=== PATIENT | male | born 1965 | race Caucasian/White ===

== ENCOUNTER 2019-06-13 09:20 | Inpatient (IN) | payer OTHER ==
[~2019-06-13] VITALS: Ht 182.9 cm; Wt 113.4 kg
[2019-06-13] MEDS ORDERED: METOPROLOL TARTRATE 5 MG/5 ML VIAL. IVP ONE (09:30)
--- NOTE | 2019-06-13 09:39 | PHYS DOC ---
Past Medical History Past Medical History: CAD, Diabetes-Type II, Hypertension Additional Past Surgical Histo: PTCA Smoking: Quit Greater Than 1 Year (smoked socially during service) Adult General Chief Complaint Chief Complaint: CHEST PAIN HPI HPI Patient is a 54-year-old male, with a past history of coronary artery disease and other medical problems, who presents to the emergency department for evaluation. He states that at about 8 AM this morning, when he went to work, he developed the sudden onset of sharp midsternal chest pain without radiation. Patient was diaphoretic, and found to be hypertensive. EMS was called, and p erformed an EKG, which did show some ischemic changes, but was reviewed, for the patient's arrival, but myself and cardiology on-call, and not felt quite be diagnostic of an ST elevation AL. The patient was given 100 �g of fentanyl as well as 324 mg of aspirin by EMS, vomited once after receiving the pain medication, and the pain is improved, but not completely resolved, he rates his pain as a 2. He states the pain did not quite feel the same as his prior AL, which she reports was a mild heart attack. He states this is more intense. There are no alleviating or exacerbating factors to his symptoms otherwise. Review of Systems Review of Systems Constitutional: Denies fever or chills [] Eyes: Denies change in visual acuity, redness, or eye pain [] HENT: Denies nasal congestion or sore throat [] Respiratory: Denies cough. Reports shortness of breath [] Cardiovascular: No additional information not addressed in HPI [] GI: Denies abdominal pain, nausea, vomiting, bloody stools or diarrhea [] : Denies dysuria or hematuria [] Musculoskeletal: Denies back pain or joint pain [] Integument: Denies rash or skin lesions [] Neurologic: Denies headache, focal weakness or sensory changes [] Endocrine: Denies polyuria or polydipsia [] All other systems were reviewed and found to be within normal limits, except as documented in this note. Current Medications Current Medications Current Medications Medications (Trade) Dose Ordered Sig/Bret Start Time Stop Time Status Last Admin Dose Admin Heparin Sodium (Porcine) (Heparin Sodium) 4,000 unit 1X ONCE 06/13/19 09:45 06/13/19 09:55 DC 06/13/19 09:49 4,000 UNIT Heparin Sodium/ Dextrose 500 ml @ As Directed STK-MED ONCE 06/13/19 09:45 06/13/19 09:45 DC Insulin Human Regular (HumuLIN R VIAL) 10 unit 1X ONCE 06/13/19 10:15 06/13/19 10:18 DC Lorazepam (Ativan Inj) 2 mg STK-MED ONCE 06/13/19 09:45 06/13/19 09:45 DC Magnesium Sulfate/ Dextrose 100 ml @ 100 mls/hr 1X ONCE 06/13/19 10:15 06/13/19 11:14 Metoprolol Tartrate (Lopressor Vial) 5 mg 1X ONCE 06/13/19 09:30 06/13/19 09:32 DC 06/13/19 09:46 5 MG Nitroglycerin/ Dextrose 250 ml @ As Directed STK-MED ONCE 06/13/19 09:51 06/13/19 09:51 DC Sodium Chloride 1,000 ml @ 1,000 mls/hr 1X ONCE 06/13/19 10:15 06/13/19 11:14 Allergies Allergies Allergies Coded Allergies Type Severity Reaction Last Updated Verified No Known Drug Allergies 06/13/19 No Physical Exam Physical Exam PHYSICAL EXAM: CONSTITUTIONAL: Well developed, well nourished HEAD: normocephalic, atraumatic EENT: PERRL, EOMI. Conjunctivae normal color, sclerae non-icteric; moist mucous membranes. NECK: Supple, non-tender; no meningismus. LUNGS: Lungs CTA, breathing even and unlabored. Normal air movement. HEART: Regular rate and rhythm, no murmur CHEST: No deformity; non-tender ABDOMEN: The abdomen is soft, and non-tender, no masses or bruits. EXTREM: Normal ROM; no deformity, no calf tenderness. Normal pulses palpable in all extremities. There is no pedal edema. SKIN: No rash; no diaphoresis NEURO: Alert; normal speech and cognition; CN's grossly intact; strength grossly intact without focal deficit. BACK: No CVA TTP. Current Patient Data Vital Signs Vital Signs Date Time Temp Pulse Resp B/P (MAP) Pulse Ox O2 Delivery O2 Flow Rate FiO2 06/13/19 09:46 100 211/125 06/13/19 09:20 98.6 20 99 Room Air 98.6 Lab Values Laboratory Tests Test 06/13/19 09:24 06/13/19 09:45 White Blood Count 5.2 x10^3/uL (4.0-11.0) Red Blood Count 5.18 x10^6/uL (4.30-5.70) Hemoglobin 16.0 g/dL (13.0-17.5) Hematocrit 44.9 % (39.0-53.0) Mean Corpuscular Volume 87 fL (79-100) Mean Corpuscular Hemoglobin 31 pg (25-35) Mean Corpuscular Hemoglobin Concent 36 g/dL (31-37) Red Cell Distribution Width 13.7 % (11.5-14.5) Platelet Count 179 x10^3/uL (140-400) Neutrophils (%) (Auto) 81 % (31-73) H Lymphocytes (%) (Auto) 12 % (24-48) L Monocytes (%) (Auto) 6 % (0-9) Eosinophils (%) (Auto) 1 % (0-3) Basophils (%) (Auto) 0 % (0-3) Neutrophils # (Auto) 4.2 x10^3/uL (1.8-7.7) Lymphocytes # (Auto) 0.6 x10^3/uL (1.0-4.8) L Monocytes # (Auto) 0.3 x10^3/uL (0.0-1.1) Eosinophils # (Auto) 0.1 x10^3/uL (0.0-0.7) Basophils # (Auto) 0.0 x10^3/uL (0.0-0.2) Prothrombin Time 12.3 SEC (11.7-14.0) Prothrombin Time INR 0.9 (0.8-1.1) Sodium Level 138 mmol/L (136-145) Potassium Level 3.9 mmol/L (3.5-5.1) Chloride Level 99 mmol/L (98-107) Carbon Dioxide Level 26 mmol/L (21-32) Anion Gap 13 (6-14) Blood Urea Nitrogen 16 mg/dL (8-26) Creatinine 1.3 mg/dL (0.7-1.3) Estimated GFR (Cockcroft-Gault) 57.5 BUN/Creatinine Ratio 12 (6-20) Glucose Level 530 mg/dL (70-99) *H Calcium Level 9.1 mg/dL (8.5-10.1) Magnesium Level 1.6 mg/dL (1.8-2.4) L Total Bilirubin 1.2 mg/dL (0.2-1.0) H Aspartate Amino Transferase (AST) 21 U/L (15-37) Alanine Aminotransferase (ALT) 46 U/L (16-63) Alkaline Phosphatase 117 U/L (46-116) H Troponin I Quantitative < 0.017 ng/mL (0.000-0.055) BS-Hkh-U-Type Natriuretic Peptide 36 pg/mL (0-124) Total Protein 7.4 g/dL (6.4-8.2) Albumin 3.9 g/dL (3.4-5.0) Albumin/Globulin Ratio 1.1 (1.0-1.7) POC Troponin I 0.00 ng/ml (<0.08) Laboratory Tests 06/13/19 09:24 Laboratory Tests 06/13/19 09:24 EKG EKG Normal sinus rhythm at a rate of 102 beats for minute, normal axis, normal intervals, there are subtle ST elevation in leads II, III, and aVF, as well as subtle anterior ST elevation with a concave upwards pattern, suggestive of ischemia, but not clearly diagnostic, of an acute ST elevation AL. EKG was reviewed both by myself, and by cardiology on-call, Dr. Munoz. [] Radiology/Procedures Radiology/Procedures []PROCEDURE: CHEST AP ONLY CHEST AP ONLY History: Chest pain Comparison: None. Findings: Single view of the chest is submitted. There is no infiltrate, pneumothorax, or effusion. Pericardial cardiac silhouette is borderline enlarged. Impression: 1. Pericardial cardiac silhouette is borderline enlarged. Course & Med Decision Making Course & Med Decision Making Pertinent Labs and Imaging studies reviewed. 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 Munoz, is in ED to see patient. 10:25 AM: Patient's condition remained stable, he is feeling significantly better at this time. His pain is controlled. The patient's EKG was not deemed to be definitively ischemic, and the patient reports that it had a negative stress test recently, and thus will be managed expectantly, per cardiology recommendations. Hospitalist will admit the patient for further management and treatment. []CRITICAL CARE TIME: [60] Minutes, excluding any procedures and care of other patients. Dragon Disclaimer Dragon Disclaimer This electronic medical record was generated, in whole or in part, using a voice recognition dictation system. Departure Departure Impression: Primary Impression: Chest pain Additional Impressions: CAD (coronary artery disease) Hyperglycemia Disposition: ADMITTED INPATIENT Condition: STABLE Referrals: UNKNOWN PCP NAME (PCP) Problem Qualifiers ESTIVEN BERUMEN MD Jun 13, 2019 09:39
--- NOTE | 2019-06-13 09:41 | RAD ---
CHEST AP ONLY History: Chest pain Comparison: None. Findings: Single view of the chest is submitted. There is no infiltrate, pneumothorax, or effusion. Pericardial cardiac silhouette is borderline enlarged. Impression: 1. Pericardial cardiac silhouette is borderline enlarged. Electronically signed by: Willis Zee MD (06/13/2019 9:39 AM) [id number]
[2019-06-13] MEDS ORDERED: HEPARIN 25,000UTS/500ML PREMIX 0 ML IV ONE (09:45)
[2019-06-13] MEDS ORDERED: HEPARIN for IV BOLUS 10,000 UNIT/10 ML VIAL. IV ONE (09:45)
[2019-06-13 09:46] LABS: BASO % 0 % (0-3); EOS # 0.1 x10^3/uL (0.0-0.7); EOS % 1 % (0-3); HEMATOCRIT 44.9 % (39.0-53.0); LYMPH # 0.6 x10^3/uL (1.0-4.8); LYMPH % 12 % (24-48); MEAN CORPUSCULAR HEMOGLOBIN 31 pg (25-35); MEAN CORPUSCULAR HGB CONC 36 g/dL (31-37); MEAN CORPUSCULAR VOLUME 87 fL (79-100); MONO # 0.3 x10^3/uL (0.0-1.1); MONO % 6 % (0-9); NEUT # 4.2 x10^3/uL (1.8-7.7); NEUT % 81 % (31-73); PLATELET COUNT 179 x10^3/uL (140-400); RED BLOOD COUNT 5.18 x10^6/uL (4.30-5.70); RED CELL DISTRIBUTION WIDTH 13.7 % (11.5-14.5); WHITE BLOOD COUNT 5.2 x10^3/uL (4.0-11.0)
[2019-06-13] MEDS ORDERED: NITROGLYCERIN PREMIX 250 ML IV ONE (09:51)
[2019-06-13 10:02] LABS: ALBUMIN 3.9 g/dL (3.4-5.0); ALBUMIN/GLOBULIN RATIO 1.1 (1.0-1.7); CALCIUM 9.1 mg/dL (8.5-10.1); CREATININE 1.3 mg/dL (0.7-1.3); GFR 57.5; MAGNESIUM 1.6 mg/dL (1.8-2.4); POTASSIUM 3.9 mmol/L (3.5-5.1); TOTAL BILIRUBIN 1.2 mg/dL (0.2-1.0); TOTAL PROTEIN 7.4 g/dL (6.4-8.2)
[2019-06-13 10:07] LABS: PROTHROMBIN TIME PATIENT 12.3 SEC (11.7-14.0)
[2019-06-13] MEDS ORDERED: INSULIN REGULAR 100 UNIT/ML 3ML VIAL. IV ONE (10:15)
[2019-06-13] MEDS ORDERED: IV NORMAL SALINE 1000ML BAG 1,000 ML IV ONE (10:15)
[2019-06-13] MEDS ORDERED: MAGNESIUM SULFATE 1GM 100 ML IV ONE (10:15)
--- NOTE | 2019-06-13 10:25 | EKG ---
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
[2019-06-13 12:20] VITALS: BP 186/103
--- NOTE | 2019-06-13 12:21 | EKG ---
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
[2019-06-13] MEDS ORDERED: DEXTROSE 50% 25 GM / 50ML DISP.SYRIN. IV PRN (13:45)
[2019-06-13] MEDS ORDERED: INSULIN LISPRO 300 UNITS/3 ML VIAL. SQ ONE (13:45)
[2019-06-13] MEDS ORDERED: IV DEXTROSE 5% 250 ML BAG. IV PRN (13:45)
[2019-06-13] MEDS: INSULIN LISPRO 300 UNITS/3 ML VIAL. SQ SCH ×3 (14:29→18:34)
[2019-06-13] MEDS ORDERED: amLODIPine BESYLATE 5 MG TABLET PO ONE (14:30)
[2019-06-13] MEDS ORDERED: HEPARIN 25,000UTS/500ML PREMIX 500 ML IV PRN (14:30)
[2019-06-13] MEDS ORDERED: LABETALOL 20 MG/4 ML DISP.SYRIN. IVP PRN (14:30)
[2019-06-13 15:00] VITALS: BP 190/113
[2019-06-13 15:48] LABS: BILIRUBIN,URINE NEGATIVE (NEG); CLARITY,URINE CLEAR; COLOR,URINE YELLOW; NITRITE,URINE NEGATIVE (NEG); PROTEIN,URINE NEGATIVE (NEG-TRACE); UROBILINOGEN,URINE 0.2 mg/dL (0.2 mg/dL)
[2019-06-13 15:53] LABS: BACTERIA,URINE 0 /HPF (0-FEW); RBC,URINE 0 /HPF (0-2); SQUAMOUS EPITHELIAL CELL,UR OCC /LPF; WBC,URINE 0 /HPF (0-4)
--- NOTE | 2019-06-13 16:07 | PDOC2 ---
CONSULT Date of Consult Date of Consult DATE: 06/13/19 TIME: 16:06 Reason for Consult Reason for Consult: Chest pain Referring Physician Referring Physician: Dr. Barron Identification/Chief Complaint Chief Complaint Chest pain Source Source: Chart review, Patient History of Present Illness Reason for Visit: 54 y/o male with history of CAD s/p PCI/stents 8 years ago usually followed at [facility] presented with retrosternal CP that started at 8 am today. He described it as sharp in nature associated with diaphoresis and nausea. It was 8/10 severity at onset and currently at 2/10. He denied any orthopnea/PND, palpitations or syncope. Past Medical History Cardiovascular: CAD, HTN, Hyperlipidemia Endocrine: Diabetes Past Surgical History Past Surgical History: No pertinent history Social History Quit ALCOHOL: none Drugs: None Current Problem List Problem List Problems Medical Problems: (1) CAD (coronary artery disease) Status: Acute (2) Chest pain Status: Acute (3) Hyperglycemia Status: Acute Current Medications Current Medications Current Medications Metoprolol Tartrate (Lopressor Vial) 5 mg 1X ONCE IVP Last administered on 06/13/19at 09:46; Start 06/13/19 at 09:30; Stop 06/13/19 at 09:32; Status DC Heparin Sodium (Porcine) (Heparin Sodium) 4,000 unit 1X ONCE IV Last administered on 06/13/19at 09:49; Start 06/13/19 at 09:45; Stop 06/13/19 at 09:55; Status DC Heparin Sodium/ Dextrose 0 ml @ As Directed STK-MED ONCE IV ; Start 06/13/19 at 09:45; Stop 06/13/19 at 09:45; Status DC Lorazepam (Ativan Inj) 2 mg STK-MED ONCE .ROUTE ; Start 06/13/19 at 09:45; Stop 06/13/19 at 09:45; Status DC Nitroglycerin/ Dextrose 250 ml @ As Directed STK-MED ONCE IV ; Start 06/13/19 at 09:51; Stop 06/13/19 at 09:51; Status DC Sodium Chloride 1,000 ml @ 1,000 mls/hr 1X ONCE IV Last administered on 06/13/19at 10:34; Start 06/13/19 at 10:15; Stop 06/13/19 at 11:14; Status DC Insulin Human Regular (HumuLIN R VIAL) 10 unit 1X ONCE IV Last administered on 06/13/19at 10:34; Start 06/13/19 at 10:15; Stop 06/13/19 at 10:18; Status DC Magnesium Sulfate/ Dextrose 100 ml @ 100 mls/hr 1X ONCE IV Last administered on 06/13/19at 10:34; Start 06/13/19 at 10:15; Stop 06/13/19 at 11:14; Status DC Insulin Human Lispro (HumaLOG) 10 units 1X ONCE SQ Last administered on 06/13/19at 14:30; Start 06/13/19 at 13:45; Stop 06/13/19 at 13:49; Status DC Insulin Human Lispro (HumaLOG) 0-9 UNITS TIDWMEALS SQ Last administered on 06/13/19at 14:30; Start 06/13/19 at 14:25 Dextrose (Dextrose 50%-Water Syringe) 12.5 gm PRN Q15MIN PRN IV SEE COMMENTS; Start 06/13/19 at 13:45; Status UNV Dextrose 250 ml PRN Q15MIN PRN IV SEE COMMENTS; Start 06/13/19 at 13:45 Heparin Sodium/ Dextrose 500 ml @ 20 mls/hr CONT PRN IV chest pain Last administered on 06/13/19at 15:08; Start 06/13/19 at 14:30 Heparin Sodium (Porcine) (Heparin Sodium) 2,700 unit PRN Q6HRS PRN IV FOR UFH LEVEL LESS THAN 0.2; Start 06/13/19 at 14:30 Labetalol HCl (Normodyne Iv Push) 20 mg PRN Q2HR PRN IVP HYPERTENSION Last administered on 06/13/19at 15:32; Start 06/13/19 at 14:30 Amlodipine Besylate (Norvasc) 5 mg 1X ONCE PO Last administered on 06/13/19at 15:32; Start 06/13/19 at 14:30; Stop 06/13/19 at 14:55; Status DC Tirofiban/Sodium Chloride 250 ml @ 0 mls/hr CONT PRN IV PER PROTOCOL; Start 06/13/19 at 14:45 Allergies Allergies: Coded Allergies: No Known Drug Allergies (Unverified , 06/13/19) ROS PSYCHOLOGICAL ROS: No: Hallucinations Eyes: No Loss of vision HEENT: No: Epistaxis Respiratory: No: Hemoptysis Cardiovascular: yes Chest Pain Gastrointestinal: Yes Nausea Genitourinary: No Hematuria Neurological: No Seizures Skin: No Rash Physical Exam General: Alert, Oriented X3 HEENT: Atraumatic, PERRLA Lungs: Clear to auscultation Heart: Regular rate Abdomen: Soft, No tenderness Extremities: No edema Psych/Mental Status: Mood NL Vitals VITALS Vital Signs Date Time Temp Pulse Resp B/P (MAP) Pulse Ox O2 Delivery O2 Flow Rate FiO2 06/13/19 15:32 95 190/113 06/13/19 12:30 Room Air 06/13/19 11:20 18 95 06/13/19 09:20 98.6 98.6 Labs Labs Laboratory Tests Test 06/13/19 09:24 06/13/19 09:45 06/13/19 11:11 06/13/19 12:27 White Blood Count 5.2 x10^3/uL (4.0-11.0) Red Blood Count 5.18 x10^6/uL (4.30-5.70) Hemoglobin 16.0 g/dL (13.0-17.5) Hematocrit 44.9 % (39.0-53.0) Mean Corpuscular Volume 87 fL (79-100) Mean Corpuscular Hemoglobin 31 pg (25-35) Mean Corpuscular Hemoglobin Concent 36 g/dL (31-37) Red Cell Distribution Width 13.7 % (11.5-14.5) Platelet Count 179 x10^3/uL (140-400) Neutrophils (%) (Auto) 81 % (31-73) Lymphocytes (%) (Auto) 12 % (24-48) Monocytes (%) (Auto) 6 % (0-9) Eosinophils (%) (Auto) 1 % (0-3) Basophils (%) (Auto) 0 % (0-3) Neutrophils # (Auto) 4.2 x10^3/uL (1.8-7.7) Lymphocytes # (Auto) 0.6 x10^3/uL (1.0-4.8) Monocytes # (Auto) 0.3 x10^3/uL (0.0-1.1) Eosinophils # (Auto) 0.1 x10^3/uL (0.0-0.7) Basophils # (Auto) 0.0 x10^3/uL (0.0-0.2) Prothrombin Time 12.3 SEC (11.7-14.0) Prothromb Time International Ratio 0.9 (0.8-1.1) Sodium Level 138 mmol/L (136-145) Potassium Level 3.9 mmol/L (3.5-5.1) Chloride Level 99 mmol/L (98-107) Carbon Dioxide Level 26 mmol/L (21-32) Anion Gap 13 (6-14) Blood Urea Nitrogen 16 mg/dL (8-26) Creatinine 1.3 mg/dL (0.7-1.3) Estimated GFR (Cockcroft-Gault) 57.5 BUN/Creatinine Ratio 12 (6-20) Glucose Level 530 mg/dL (70-99) Calcium Level 9.1 mg/dL (8.5-10.1) Magnesium Level 1.6 mg/dL (1.8-2.4) Total Bilirubin 1.2 mg/dL (0.2-1.0) Aspartate Amino Transf (AST/SGOT) 21 U/L (15-37) Alanine Aminotransferase (ALT/SGPT) 46 U/L (16-63) Alkaline Phosphatase 117 U/L (46-116) Troponin I Quantitative < 0.017 ng/mL (0.000-0.055) TY-Mjj-F-Type Natriuretic Peptide 36 pg/mL (0-124) Total Protein 7.4 g/dL (6.4-8.2) Albumin 3.9 g/dL (3.4-5.0) Albumin/Globulin Ratio 1.1 (1.0-1.7) Thyroid Stimulating Hormone (TSH) 2.539 uIU/mL (0.358-3.74) Bedside Troponin I 0.00 ng/ml (<0.08) 0.23 ng/ml (<0.08) Glucose (Fingerstick) 344 mg/dL (70-99) Test 06/13/19 13:35 06/13/19 15:00 Troponin I Quantitative 9.492 ng/mL (0.000-0.055) Urine Collection Type Unknown Urine Color Yellow Urine Clarity Clear Urine pH 6.0 Urine Specific [place] >=1.030 Urine Protein Negative mg/dL (NEG-TRACE) Urine Glucose (UA) >=1000 mg/dL (NEG) Urine Ketones (Stick) 15 mg/dL (NEG) Urine Blood Negative (NEG) Urine Nitrite Negative (NEG) Urine Bilirubin Negative (NEG) Urine Urobilinogen Dipstick 0.2 mg/dL (0.2 mg/dL) Urine Leukocyte Esterase Negative (NEG) Urine RBC 0 /HPF (0-2) Urine WBC 0 /HPF (0-4) Urine Squamous Epithelial Cells Occ /LPF Urine Bacteria 0 /HPF (0-FEW) Laboratory Tests Test 06/13/19 09:24 06/13/19 09:45 06/13/19 11:11 06/13/19 12:27 White Blood Count 5.2 x10^3/uL (4.0-11.0) Red Blood Count 5.18 x10^6/uL (4.30-5.70) Hemoglobin 16.0 g/dL (13.0-17.5) Hematocrit 44.9 % (39.0-53.0) Mean Corpuscular Volume 87 fL (79-100) Mean Corpuscular Hemoglobin 31 pg (25-35) Mean Corpuscular Hemoglobin Concent 36 g/dL (31-37) Red Cell Distribution Width 13.7 % (11.5-14.5) Platelet Count 179 x10^3/uL (140-400) Neutrophils (%) (Auto) 81 % (31-73) Lymphocytes (%) (Auto) 12 % (24-48) Monocytes (%) (Auto) 6 % (0-9) Eosinophils (%) (Auto) 1 % (0-3) Basophils (%) (Auto) 0 % (0-3) Neutrophils # (Auto) 4.2 x10^3/uL (1.8-7.7) Lymphocytes # (Auto) 0.6 x10^3/uL (1.0-4.8) Monocytes # (Auto) 0.3 x10^3/uL (0.0-1.1) Eosinophils # (Auto) 0.1 x10^3/uL (0.0-0.7) Basophils # (Auto) 0.0 x10^3/uL (0.0-0.2) Prothrombin Time 12.3 SEC (11.7-14.0) Prothromb Time International Ratio 0.9 (0.8-1.1) Sodium Level 138 mmol/L (136-145) Potassium Level 3.9 mmol/L (3.5-5.1) Chloride Level 99 mmol/L (98-107) Carbon Dioxide Level 26 mmol/L (21-32) Anion Gap 13 (6-14) Blood Urea Nitrogen 16 mg/dL (8-26) Creatinine 1.3 mg/dL (0.7-1.3) Estimated GFR (Cockcroft-Gault) 57.5 BUN/Creatinine Ratio 12 (6-20) Glucose Level 530 mg/dL (70-99) Calcium Level 9.1 mg/dL (8.5-10.1) Magnesium Level 1.6 mg/dL (1.8-2.4) Total Bilirubin 1.2 mg/dL (0.2-1.0) Aspartate Amino Transf (AST/SGOT) 21 U/L (15-37) Alanine Aminotransferase (ALT/SGPT) 46 U/L (16-63) Alkaline Phosphatase 117 U/L (46-116) Troponin I Quantitative < 0.017 ng/mL (0.000-0.055) NC-Gya-H-Type Natriuretic Peptide 36 pg/mL (0-124) Total Protein 7.4 g/dL (6.4-8.2) Albumin 3.9 g/dL (3.4-5.0) Albumin/Globulin Ratio 1.1 (1.0-1.7) Thyroid Stimulating Hormone (TSH) 2.539 uIU/mL (0.358-3.74) Bedside Troponin I 0.00 ng/ml (<0.08) 0.23 ng/ml (<0.08) Glucose (Fingerstick) 344 mg/dL (70-99) Test 06/13/19 13:35 06/13/19 15:00 Troponin I Quantitative 9.492 ng/mL (0.000-0.055) Urine Collection Type Unknown Urine Color Yellow Urine Clarity Clear Urine pH 6.0 Urine Specific [place] >=1.030 Urine Protein Negative mg/dL (NEG-TRACE) Urine Glucose (UA) >=1000 mg/dL (NEG) Urine Ketones (Stick) 15 mg/dL (NEG) Urine Blood Negative (NEG) Urine Nitrite Negative (NEG) Urine Bilirubin Negative (NEG) Urine Urobilinogen Dipstick 0.2 mg/dL (0.2 mg/dL) Urine Leukocyte Esterase Negative (NEG) Urine RBC 0 /HPF (0-2) Urine WBC 0 /HPF (0-4) Urine Squamous Epithelial Cells Occ /LPF Urine Bacteria 0 /HPF (0-FEW) Assessment/Plan Assessment/Plan 1. Chest pain with mixed features. EKG showed SR with suspicious changes but not diagnostic for ACS. Patient stated that his CP has almost completely resolved and recent stress test at [facility] 2-3 weeks ago apparently was normal. Initial trop negative. Plan for serial enzymes, 2D echo to rule out WMA and plan ischemic eval based on results. Continue ASA and start heparin 2. Accelerated HTN: resume home meds and titrate for better control 3. DM-2: treat per IM. Consider jardiance. 4. HLP: statins Thank you for your consultation CLIFF SHIN MD Jun 13, 2019 16:07
[2019-06-13] MEDS ORDERED: LOSA100T14 PO (17:55)
[2019-06-13] MEDS ORDERED: INSU100I13 SQ (17:55)
[2019-06-13] MEDS ORDERED: ASPI-630 PO (17:55)
[2019-06-13] MEDS ORDERED: METF500S5 PO (17:55)
[2019-06-13] MEDS ORDERED: INSU100C4 SQ ×3 (17:55)
[2019-06-13] MEDS ORDERED: ATOR40TA59 PO (17:55)
[2019-06-13] MEDS ORDERED: CARV25TA2 PO (17:55)
[2019-06-13] MEDS ORDERED: AMLO10TA8 PO (17:55)
--- NOTE | 2019-06-13 18:16 | HP ---
ADMIT DATE: 06/13/2019 CHIEF COMPLAINT: Chest pain. HISTORY OF PRESENT ILLNESS: The patient is a pleasant 54-year-old male, who arrived at work today and had chest pain. He has known coronary artery disease with the previous 2 stents. 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 Described his pain as agonizing, rated 10/10 has associated nausea. They gave him some medicines. When the ambulance arrived that seemed to help a little. I discussed the case with ER physician. We are going to admit the patient. The patient is currently on a nitro drip. We will be consulting Cardiology for a full cardiac workup. PAST MEDICAL HISTORY: CAD with 2 previous stents, diabetes, hypertension and tobacco abuse, but he quit a year ago. ALLERGIES: None. FAMILY HISTORY: Coronary artery disease. 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 He quit smoking. He says he is , but I do not think he is . No drink, no drugs. MEDICATIONS: Reviewed, please refer to the MRAD. REVIEW OF SYSTEMS: GENERAL: No history of weight change, weakness or fevers. SKIN: No bruising, hair changes or rashes. EYES: No blurred, double or loss of vision. NOSE AND THROAT: No history of nosebleeds, hoarseness or sore throat. HEART: He complains of chest pain. LUNGS: Denies cough, hemoptysis, wheezing or shortness of breath. GASTROINTESTINAL: Denies changes in appetite, nausea, vomiting, diarrhea or constipation. GENITOURINARY: No history of frequency, urgency, hesitancy or nocturia. NEUROLOGIC: Denies history of numbness, tingling, tremor or weakness. PSYCHIATRIC: No history of panic, anxiety or depression. ENDOCRINE: No history of heat or cold intolerance, polyuria or polydipsia. EXTREMITIES: Denies muscle weakness, joint pain, pain on walking or stiffness. PHYSICAL EXAMINATION: VITALS: Within normal limits and are stable. GENERAL: No apparent distress. Alert and oriented. HEENT: Head is normocephalic, atraumatic, pupils were equally round and reactive to light and accommodation. NECK: Supple, no JVD, no thyromegaly was noted. LUNGS: Clear to auscultation in all lung soriano without rhonchi or wheezing. HEART: RRR, S1, S2 present. Peripheral pulses intact, no obvious murmurs were noted. ABDOMEN: Soft, nontender. Positive bowel sounds, no organomegaly, normal bowel sounds. EXTREMITIES: Without any cyanosis, clubbing, or edema. Pedal pulses intact, Homans sign is negative. NEUROLOGIC: Normal speech, normal tone. A and O x 3, moves all extremities, no obvious focal deficits. PSYCHIATRIC: Normal affect, normal mood. Stable. SKIN: No ulcerations or rashes, good skin turgor, no jaundice. VASCULAR: Good capillary refill, neurovascular bundle appears to be intact. LABORATORY DATA: Troponin is 0. Glucose is 500. ASSESSMENT AND PLAN: Chest pain and hyperglycemia. The patient has been admitted. We will start diabetic protocol, serial enzymes, serial EKGs, nitro drip, consult Cardiology. Suspect he might need a cardiac catheterization, but we will await Cardiology input. PROGNOSIS: Guarded. TJ ALMARAZ DO DR: CRISTI/bessie JOB#: [id number] / [id number]
--- NOTE | 2019-06-13 18:24 | EKG ---
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
[2019-06-13] MEDS: ASPIRIN CHEWABLE 81 MG TABLET. PO SCH (18:29)
[2019-06-13] MEDS: CARVEDILOL 12.5 MG TABLET. PO SCH (18:29)
[2019-06-13 19:00] VITALS: BP 135/86
[2019-06-13] MEDS: ATORVASTATIN CALCIUM 40 MG TABLET. PO SCH (20:10)
[2019-06-13] MEDS: INSULIN GLARGINE 300 UNITS/3 ML INSULN.PEN. SQ SCH (20:20)
[2019-06-13] MEDS ORDERED: BISMUTH SUBSALICYLATE 262 MG/15 ML ORAL.SUSP 236ML BOTTLE. PO PRN (22:15)
[2019-06-13] MEDS: HEPARIN for IV BOLUS 10,000 UNIT/10 ML VIAL. IV PRN (23:28)
[2019-06-13 23:39] VITALS: BP 118/63
[2019-06-14] VITALS (14 sets, daily range): BP systolic 111–144; BP diastolic 69–94
[2019-06-14 00:07] LABS: HEMOGLOBIN A1C 10.1 % (4.8-5.6)
[2019-06-14 05:42] LABS: CALCIUM 8.4 mg/dL (8.5-10.1); CREATININE 1.1 mg/dL (0.7-1.3); GFR 69.8; MAGNESIUM 1.9 mg/dL (1.8-2.4); POTASSIUM 3.1 mmol/L (3.5-5.1)
[2019-06-14 05:53] LABS: CHOLESTEROL/HDL RATIO 5.2
[2019-06-14] MEDS: HEPARIN for IV BOLUS 10,000 UNIT/10 ML VIAL. IV PRN (06:16)
[2019-06-14] MEDS ORDERED: HEPARIN for ARTERIAL LINE 1,500 ML ONE (07:34)
[2019-06-14] MEDS ORDERED: IODIXANOL 320 MG/ML 100 ML VIAL. ONE ×2 (07:34→13:53)
[2019-06-14] MEDS ORDERED: LIDOCAINE 1% Multi-Dose 20 ML VIAL. ONE (07:34)
[2019-06-14] MEDS: INSULIN LISPRO 300 UNITS/3 ML VIAL. SQ SCH ×5 (08:00→18:04)
[2019-06-14 08:39] LABS: BASO % 0 % (0-3); EOS # 0.1 x10^3/uL (0.0-0.7); EOS % 1 % (0-3); HEMATOCRIT 40.5 % (39.0-53.0); HEMOGLOBIN 14.1 g/dL (13.0-17.5); LYMPH # 1.2 x10^3/uL (1.0-4.8); LYMPH % 16 % (24-48); MEAN CORPUSCULAR HEMOGLOBIN 31 pg (25-35); MEAN CORPUSCULAR HGB CONC 35 g/dL (31-37); MEAN CORPUSCULAR VOLUME 88 fL (79-100); MONO # 0.5 x10^3/uL (0.0-1.1); MONO % 7 % (0-9); NEUT # 5.9 x10^3/uL (1.8-7.7); NEUT % 76 % (31-73); PLATELET COUNT 175 x10^3/uL (140-400); RED BLOOD COUNT 4.59 x10^6/uL (4.30-5.70); RED CELL DISTRIBUTION WIDTH 13.9 % (11.5-14.5); WHITE BLOOD COUNT 7.8 x10^3/uL (4.0-11.0)
[2019-06-14] MEDS: LOSARTAN POTASSIUM 50 MG TABLET. PO SCH (09:00)
[2019-06-14] MEDS: amLODIPine BESYLATE 10 MG TABLET PO SCH (09:00)
[2019-06-14] MEDS ORDERED: ACETAMINOPHEN 500 MG TABLET PO PRN (09:15)
[2019-06-14] MEDS ORDERED: ONDANSETRON PF 4 MG/2 ML VIAL. IV PRN (09:15)
[2019-06-14] MEDS ORDERED: ACETAMINOPHEN/CODEINE 300/30MG TABLET. PO PRN (09:15)
[2019-06-14] MEDS ORDERED: POTASSIUM CHLORIDE 20 MEQ TABLET.ER. PO ONE ×2 (10:00→18:00)
[2019-06-14] MEDS: ASPIRIN CHEWABLE 81 MG TABLET. PO SCH (10:13)
[2019-06-14] MEDS: CARVEDILOL 12.5 MG TABLET. PO SCH ×2 (10:14→17:55)
--- NOTE | 2019-06-14 11:35 | PDOC ---
PROGRESS NOTES Chief Complaint Chief Complaint 1. Chest pain with mixed features. POss NSTEMI - was on ASA at home only 2. Accelerated HTN: 3. DM-2: jardiance 4. HLP: statins 5. Obesity 6. Hypokalemia History of Present Illness History of Present Illness HAs no complaints, HEparin gtt running [facility] planned for later NO CP,. VS ok BS not bad hgb a1c pending PLAN: [facility] later CArdiac meds HGba1c ff up Dw RN and family at bedside Vitals Vitals Vital Signs Date Time Temp Pulse Resp B/P (MAP) Pulse Ox O2 Delivery O2 Flow Rate FiO2 06/14/19 10:14 68 126/69 06/14/19 07:00 98.3 20 96 Room Air 98.3 Physical Exam General: Alert, Oriented X3 Heart: Regular rate Abdomen: Soft, No tenderness Extremities: No edema Labs LABS Laboratory Tests Test 06/13/19 12:27 06/13/19 13:35 06/13/19 15:00 06/13/19 16:20 Glucose (Fingerstick) 344 mg/dL (70-99) Troponin I Quantitative 9.492 ng/mL (0.000-0.055) 29.259 ng/mL (0.000-0.055) Urine Collection Type Unknown Urine Color Yellow Urine Clarity Clear Urine pH 6.0 Urine Specific [place] >=1.030 Urine Protein Negative mg/dL (NEG-TRACE) Urine Glucose (UA) >=1000 mg/dL (NEG) Urine Ketones (Stick) 15 mg/dL (NEG) Urine Blood Negative (NEG) Urine Nitrite Negative (NEG) Urine Bilirubin Negative (NEG) Urine Urobilinogen Dipstick 0.2 mg/dL (0.2 mg/dL) Urine Leukocyte Esterase Negative (NEG) Urine RBC 0 /HPF (0-2) Urine WBC 0 /HPF (0-4) Urine Squamous Epithelial Cells Occ /LPF Urine Bacteria 0 /HPF (0-FEW) Test 06/13/19 17:13 06/13/19 20:07 06/13/19 22:30 06/14/19 05:00 Glucose (Fingerstick) 328 mg/dL (70-99) 240 mg/dL (70-99) Heparin Anti-Xa Act, Unfractionated < 0.10 IU/mL (0.30-0.70) 0.19 IU/mL (0.30-0.70) White Blood Count 7.8 x10^3/uL (4.0-11.0) Red Blood Count 4.59 x10^6/uL (4.30-5.70) Hemoglobin 14.1 g/dL (13.0-17.5) Hematocrit 40.5 % (39.0-53.0) Mean Corpuscular Volume 88 fL (79-100) Mean Corpuscular Hemoglobin 31 pg (25-35) Mean Corpuscular Hemoglobin Concent 35 g/dL (31-37) Red Cell Distribution Width 13.9 % (11.5-14.5) Platelet Count 175 x10^3/uL (140-400) Neutrophils (%) (Auto) 76 % (31-73) Lymphocytes (%) (Auto) 16 % (24-48) Monocytes (%) (Auto) 7 % (0-9) Eosinophils (%) (Auto) 1 % (0-3) Basophils (%) (Auto) 0 % (0-3) Neutrophils # (Auto) 5.9 x10^3/uL (1.8-7.7) Lymphocytes # (Auto) 1.2 x10^3/uL (1.0-4.8) Monocytes # (Auto) 0.5 x10^3/uL (0.0-1.1) Eosinophils # (Auto) 0.1 x10^3/uL (0.0-0.7) Basophils # (Auto) 0.0 x10^3/uL (0.0-0.2) Sodium Level 143 mmol/L (136-145) Potassium Level 3.1 mmol/L (3.5-5.1) Chloride Level 106 mmol/L (98-107) Carbon Dioxide Level 26 mmol/L (21-32) Anion Gap 11 (6-14) Blood Urea Nitrogen 16 mg/dL (8-26) Creatinine 1.1 mg/dL (0.7-1.3) Estimated GFR (Cockcroft-Gault) 69.8 Glucose Level 175 mg/dL (70-99) Calcium Level 8.4 mg/dL (8.5-10.1) Magnesium Level 1.9 mg/dL (1.8-2.4) Triglycerides Level 189 mg/dL (0-150) Cholesterol Level 165 mg/dL (0-200) LDL Cholesterol, Calculated 95 mg/dL (0-100) VLDL Cholesterol, Calculated 38 mg/dL (0-40) Non-HDL Cholesterol Calculated 133 mg/dL (0-129) HDL Cholesterol 32 mg/dL (40-60) Cholesterol/HDL Ratio 5.2 Test 06/14/19 07:50 Glucose (Fingerstick) 172 mg/dL (70-99) Review of Systems Review of Systems no soa, no cp, no abd pain, no n.v. emesis, no headache, rest of 14 pt neg Assessment and Plan Assessmemt and Plan Problems Medical Problems: (1) CAD (coronary artery disease) Status: Acute (2) Chest pain Status: Acute (3) Hyperglycemia Status: Acute Comment Review of Relevant I have reviewed the following items adonay (where applicable) has been applied. Labs Laboratory Tests Test 06/13/19 09:24 06/13/19 09:45 06/13/19 11:11 06/13/19 12:27 White Blood Count 5.2 x10^3/uL (4.0-11.0) Red Blood Count 5.18 x10^6/uL (4.30-5.70) Hemoglobin 16.0 g/dL (13.0-17.5) Hematocrit 44.9 % (39.0-53.0) Mean Corpuscular Volume 87 fL (79-100) Mean Corpuscular Hemoglobin 31 pg (25-35) Mean Corpuscular Hemoglobin Concent 36 g/dL (31-37) Red Cell Distribution Width 13.7 % (11.5-14.5) Platelet Count 179 x10^3/uL (140-400) Neutrophils (%) (Auto) 81 % (31-73) Lymphocytes (%) (Auto) 12 % (24-48) Monocytes (%) (Auto) 6 % (0-9) Eosinophils (%) (Auto) 1 % (0-3) Basophils (%) (Auto) 0 % (0-3) Neutrophils # (Auto) 4.2 x10^3/uL (1.8-7.7) Lymphocytes # (Auto) 0.6 x10^3/uL (1.0-4.8) Monocytes # (Auto) 0.3 x10^3/uL (0.0-1.1) Eosinophils # (Auto) 0.1 x10^3/uL (0.0-0.7) Basophils # (Auto) 0.0 x10^3/uL (0.0-0.2) Prothrombin Time 12.3 SEC (11.7-14.0) Prothromb Time International Ratio 0.9 (0.8-1.1) Sodium Level 138 mmol/L (136-145) Potassium Level 3.9 mmol/L (3.5-5.1) Chloride Level 99 mmol/L (98-107) Carbon Dioxide Level 26 mmol/L (21-32) Anion Gap 13 (6-14) Blood Urea Nitrogen 16 mg/dL (8-26) Creatinine 1.3 mg/dL (0.7-1.3) Estimated GFR (Cockcroft-Gault) 57.5 BUN/Creatinine Ratio 12 (6-20) Glucose Level 530 mg/dL (70-99) Hemoglobin A1c 10.1 % (4.8-5.6) Calcium Level 9.1 mg/dL (8.5-10.1) Magnesium Level 1.6 mg/dL (1.8-2.4) Total Bilirubin 1.2 mg/dL (0.2-1.0) Aspartate Amino Transf (AST/SGOT) 21 U/L (15-37) Alanine Aminotransferase (ALT/SGPT) 46 U/L (16-63) Alkaline Phosphatase 117 U/L (46-116) Troponin I Quantitative < 0.017 ng/mL (0.000-0.055) FV-Czb-H-Type Natriuretic Peptide 36 pg/mL (0-124) Total Protein 7.4 g/dL (6.4-8.2) Albumin 3.9 g/dL (3.4-5.0) Albumin/Globulin Ratio 1.1 (1.0-1.7) Thyroid Stimulating Hormone (TSH) 2.539 uIU/mL (0.358-3.74) Bedside Troponin I 0.00 ng/ml (<0.08) 0.23 ng/ml (<0.08) Glucose (Fingerstick) 344 mg/dL (70-99) Test 06/13/19 13:35 06/13/19 15:00 06/13/19 16:20 06/13/19 17:13 Troponin I Quantitative 9.492 ng/mL (0.000-0.055) 29.259 ng/mL (0.000-0.055) Urine Collection Type Unknown Urine Color Yellow Urine Clarity Clear Urine pH 6.0 Urine Specific [place] >=1.030 Urine Protein Negative mg/dL (NEG-TRACE) Urine Glucose (UA) >=1000 mg/dL (NEG) Urine Ketones (Stick) 15 mg/dL (NEG) Urine Blood Negative (NEG) Urine Nitrite Negative (NEG) Urine Bilirubin Negative (NEG) Urine Urobilinogen Dipstick 0.2 mg/dL (0.2 mg/dL) Urine Leukocyte Esterase Negative (NEG) Urine RBC 0 /HPF (0-2) Urine WBC 0 /HPF (0-4) Urine Squamous Epithelial Cells Occ /LPF Urine Bacteria 0 /HPF (0-FEW) Glucose (Fingerstick) 328 mg/dL (70-99) Test 06/13/19 20:07 06/13/19 22:30 06/14/19 05:00 06/14/19 07:50 Glucose (Fingerstick) 240 mg/dL (70-99) 172 mg/dL (70-99) Heparin Anti-Xa Act, Unfractionated < 0.10 IU/mL (0.30-0.70) 0.19 IU/mL (0.30-0.70) White Blood Count 7.8 x10^3/uL (4.0-11.0) Red Blood Count 4.59 x10^6/uL (4.30-5.70) Hemoglobin 14.1 g/dL (13.0-17.5) Hematocrit 40.5 % (39.0-53.0) Mean Corpuscular Volume 88 fL (79-100) Mean Corpuscular Hemoglobin 31 pg (25-35) Mean Corpuscular Hemoglobin Concent 35 g/dL (31-37) Red Cell Distribution Width 13.9 % (11.5-14.5) Platelet Count 175 x10^3/uL (140-400) Neutrophils (%) (Auto) 76 % (31-73) Lymphocytes (%) (Auto) 16 % (24-48) Monocytes (%) (Auto) 7 % (0-9) Eosinophils (%) (Auto) 1 % (0-3) Basophils (%) (Auto) 0 % (0-3) Neutrophils # (Auto) 5.9 x10^3/uL (1.8-7.7) Lymphocytes # (Auto) 1.2 x10^3/uL (1.0-4.8) Monocytes # (Auto) 0.5 x10^3/uL (0.0-1.1) Eosinophils # (Auto) 0.1 x10^3/uL (0.0-0.7) Basophils # (Auto) 0.0 x10^3/uL (0.0-0.2) Sodium Level 143 mmol/L (136-145) Potassium Level 3.1 mmol/L (3.5-5.1) Chloride Level 106 mmol/L (98-107) Carbon Dioxide Level 26 mmol/L (21-32) Anion Gap 11 (6-14) Blood Urea Nitrogen 16 mg/dL (8-26) Creatinine 1.1 mg/dL (0.7-1.3) Estimated GFR (Cockcroft-Gault) 69.8 Glucose Level 175 mg/dL (70-99) Calcium Level 8.4 mg/dL (8.5-10.1) Magnesium Level 1.9 mg/dL (1.8-2.4) Triglycerides Level 189 mg/dL (0-150) Cholesterol Level 165 mg/dL (0-200) LDL Cholesterol, Calculated 95 mg/dL (0-100) VLDL Cholesterol, Calculated 38 mg/dL (0-40) Non-HDL Cholesterol Calculated 133 mg/dL (0-129) HDL Cholesterol 32 mg/dL (40-60) Cholesterol/HDL Ratio 5.2 Laboratory Tests Test 06/13/19 12:27 06/13/19 13:35 06/13/19 15:00 06/13/19 16:20 Glucose (Fingerstick) 344 mg/dL (70-99) Troponin I Quantitative 9.492 ng/mL (0.000-0.055) 29.259 ng/mL (0.000-0.055) Urine Collection Type Unknown Urine Color Yellow Urine Clarity Clear Urine pH 6.0 Urine Specific [place] >=1.030 Urine Protein Negative mg/dL (NEG-TRACE) Urine Glucose (UA) >=1000 mg/dL (NEG) Urine Ketones (Stick) 15 mg/dL (NEG) Urine Blood Negative (NEG) Urine Nitrite Negative (NEG) Urine Bilirubin Negative (NEG) Urine Urobilinogen Dipstick 0.2 mg/dL (0.2 mg/dL) Urine Leukocyte Esterase Negative (NEG) Urine RBC 0 /HPF (0-2) Urine WBC 0 /HPF (0-4) Urine Squamous Epithelial Cells Occ /LPF Urine Bacteria 0 /HPF (0-FEW) Test 06/13/19 17:13 06/13/19 20:07 06/13/19 22:30 06/14/19 05:00 Glucose (Fingerstick) 328 mg/dL (70-99) 240 mg/dL (70-99) Heparin Anti-Xa Act, Unfractionated < 0.10 IU/mL (0.30-0.70) 0.19 IU/mL (0.30-0.70) White Blood Count 7.8 x10^3/uL (4.0-11.0) Red Blood Count 4.59 x10^6/uL (4.30-5.70) Hemoglobin 14.1 g/dL (13.0-17.5) Hematocrit 40.5 % (39.0-53.0) Mean Corpuscular Volume 88 fL (79-100) Mean Corpuscular Hemoglobin 31 pg (25-35) Mean Corpuscular Hemoglobin Concent 35 g/dL (31-37) Red Cell Distribution Width 13.9 % (11.5-14.5) Platelet Count 175 x10^3/uL (140-400) Neutrophils (%) (Auto) 76 % (31-73) Lymphocytes (%) (Auto) 16 % (24-48) Monocytes (%) (Auto) 7 % (0-9) Eosinophils (%) (Auto) 1 % (0-3) Basophils (%) (Auto) 0 % (0-3) Neutrophils # (Auto) 5.9 x10^3/uL (1.8-7.7) Lymphocytes # (Auto) 1.2 x10^3/uL (1.0-4.8) Monocytes # (Auto) 0.5 x10^3/uL (0.0-1.1) Eosinophils # (Auto) 0.1 x10^3/uL (0.0-0.7) Basophils # (Auto) 0.0 x10^3/uL (0.0-0.2) Sodium Level 143 mmol/L (136-145) Potassium Level 3.1 mmol/L (3.5-5.1) Chloride Level 106 mmol/L (98-107) Carbon Dioxide Level 26 mmol/L (21-32) Anion Gap 11 (6-14) Blood Urea Nitrogen 16 mg/dL (8-26) Creatinine 1.1 mg/dL (0.7-1.3) Estimated GFR (Cockcroft-Gault) 69.8 Glucose Level 175 mg/dL (70-99) Calcium Level 8.4 mg/dL (8.5-10.1) Magnesium Level 1.9 mg/dL (1.8-2.4) Triglycerides Level 189 mg/dL (0-150) Cholesterol Level 165 mg/dL (0-200) LDL Cholesterol, Calculated 95 mg/dL (0-100) VLDL Cholesterol, Calculated 38 mg/dL (0-40) Non-HDL Cholesterol Calculated 133 mg/dL (0-129) HDL Cholesterol 32 mg/dL (40-60) Cholesterol/HDL Ratio 5.2 Test 06/14/19 07:50 Glucose (Fingerstick) 172 mg/dL (70-99) Medications Current Medications Metoprolol Tartrate (Lopressor Vial) 5 mg 1X ONCE IVP Last administered on 06/13/19at 09:46; Start 06/13/19 at 09:30; Stop 06/13/19 at 09:32; Status DC Heparin Sodium (Porcine) (Heparin Sodium) 4,000 unit 1X ONCE IV Last administered on 06/13/19at 09:49; Start 06/13/19 at 09:45; Stop 06/13/19 at 09:55; Status DC Heparin Sodium/ Dextrose 0 ml @ As Directed STK-MED ONCE IV ; Start 06/13/19 at 09:45; Stop 06/13/19 at 09:45; Status DC Lorazepam (Ativan Inj) 2 mg STK-MED ONCE .ROUTE ; Start 06/13/19 at 09:45; Stop 06/13/19 at 09:45; Status DC Nitroglycerin/ Dextrose 250 ml @ As Directed STK-MED ONCE IV ; Start 06/13/19 at 09:51; Stop 06/13/19 at 09:51; Status DC Sodium Chloride 1,000 ml @ 1,000 mls/hr 1X ONCE IV Last administered on 06/13/19 10:34; Start 06/13/19 at 10:15; Stop 06/13/19 at 11:14; Status DC Insulin Human Regular (HumuLIN R VIAL) 10 unit 1X ONCE IV Last administered on 06/13/19at 10:34; Start 06/13/19 at 10:15; Stop 06/13/19 at 10:18; Status DC Magnesium Sulfate/ Dextrose 100 ml @ 100 mls/hr 1X ONCE IV Last administered on 06/13/19at 10:34; Start 06/13/19 at 10:15; Stop 06/13/19 at 11:14; Status DC Insulin Human Lispro (HumaLOG) 10 units 1X ONCE SQ Last administered on 06/13 14:30; Start 06/13/19 at 13:45; Stop 06/13/19 at 13:49; Status DC Insulin Human Lispro (HumaLOG) 0-9 UNITS TIDWMEALS SQ Last administered on 06/13/19at 17:34; Start 06/13/19 at 14:25 Dextrose (Dextrose 50%-Water Syringe) 12.5 gm PRN Q15MIN PRN IV SEE COMMENTS; Start 06/13/19 at 13:45; Status UNV Dextrose 250 ml PRN Q15MIN PRN IV SEE COMMENTS; Start 06/13/19 at 13:45 Heparin Sodium/ Dextrose 500 ml @ 20 mls/hr CONT PRN IV chest pain Last administered on 06/13/19at 15:08; Start 06/13/19 at 14:30 Heparin Sodium (Porcine) (Heparin Sodium) 2,700 unit PRN Q6HRS PRN IV FOR UFH LEVEL LESS THAN 0.2 Last administered on 06/14/19at 06:16; Start 06/13/19 at 14:30 Labetalol HCl (Normodyne Iv Push) 20 mg PRN Q2HR PRN IVP HYPERTENSION Last administered on 06/13/19at 15:32; Start 06/13/19 at 14:30 Amlodipine Besylate (Norvasc) 5 mg 1X ONCE PO Last administered on 06/13/19at 15:32; Start 06/13/19 at 14:30; Stop 06/13/19 at 14:55; Status DC Tirofiban/Sodium Chloride 250 ml @ 0 mls/hr CONT PRN IV PER PROTOCOL; Start 06/13/19 at 14:45 Amlodipine Besylate (Norvasc) 10 mg DAILY PO ; Start 06/14/19 at 09:00 Aspirin (Children'S Aspirin) 81 mg DAILY PO Last administered on 06/14/19at 10:14; Start 06/13/19 at 18:30 Atorvastatin Calcium (Lipitor) 40 mg QHS PO Last administered on 06/13/19at 20:20; Start 06/13/19 at 21:00 Insulin Glargine (Lantus) 108 units QHS SQ Last administered on 06/13/19at 20: 20; Start 06/13/19 at 21:00 Carvedilol (Coreg) 50 mg BIDWMEALS PO Last administered on 06/14/19at 10:14; Start 06/13/19 at 18:30 Insulin Human Lispro (HumaLOG) 36 units DAILYWLUN SQ ; Start 06/14/19 at 12:00 Insulin Human Lispro (HumaLOG) 38 units DAILYWBKFT SQ ; Start 06/14/19 at 08:00 Insulin Human Lispro (HumaLOG) 42 units DAILYWSUP SQ Last administered on 06/13/19at 18:34; Start 06/13/19 at 18:30 Losartan Potassium (Cozaar) 100 mg DAILY PO ; Start 06/14/19 at 09:00 Bismuth Subsalicylate (Pepto-Bismol) 262 mg PRN Q1HR PRN PO DIARRHEA Last administered on 06/13/19at 22:33; Start 06/13/19 at 22:15 Iodixanol (Visipaque 320) 100 ml STK-MED ONCE .ROUTE ; Start 06/14/19 at 07:34; Stop 06/14/19 at 07:34; Status DC Lidocaine HCl (Lidocaine 1% 20ml Vial) 20 ml STK-MED ONCE .ROUTE ; Start 06/14/19 at 07:34; Stop 06/14/19 at 07:34; Status DC Heparin Sodium/ Sodium Chloride 1,500 ml @ As Directed STK-MED ONCE .ROUTE ; Start 06/14/19 at 07:34; Stop 06/14/19 at 07:35; Status DC Potassium Chloride (Klor-Con) 40 meq 1X ONCE PO ; Start 06/14/19 at 10:00; Stop 06/14/19 at 10:01; Status DC Acetaminophen (Tylenol) 500 mg PRN Q6HRS PRN PO MILD PAIN / TEMP; Start 06/14/19 at 09:15 Acetaminophen/ Codeine Phosphate (Tylenol #3) 1 tab PRN Q6HRS PRN PO MODERATE PAIN; Start 06/14/19 at 09:15 Ondansetron HCl (Zofran) 4 mg PRN Q6HRS PRN IV NAUSEA/VOMITING; Start 06/14/19 at 09:15 Active Scripts Active Reported Carvedilol 25 Mg Tablet 50 Mg PO BIDWMEALS Atorvastatin Calcium 40 Mg Tablet 1 Tab PO DAILY Aspirin 81 Mg Tab.chew 1 Tab PO DAILY Amlodipine Besylate 10 Mg Tablet 10 Mg PO DAILY Metformin HCl 500 Mg/5 Ml Solution 1,000 Mg PO BID Losartan Potassium 100 Mg Tablet 100 Mg PO DAILY Lantus Solostar (Insulin Glargine,Hum.rec.anlog) 100 Unit/1 Ml Insuln.pen 108 Unit SQ QHS Novolog (Insulin Aspart) 100 Unit/1 Ml Cartridge 42 Unit SQ DAILYWSUP Novolog (Insulin Aspart) 100 Unit/1 Ml Cartridge 36 Unit SQ DAILYWLUN Novolog (Insulin Aspart) 100 Unit/1 Ml Cartridge 38 Unit SQ DAILYWBKFT Vitals/I & O Vital Sign - Last 24 Hours 06/13/19 06/13/19 06/13/19 06/13/19 12:20 12:30 15:00 15:32 Temp 98.6 98.4 98.6 98.4 Pulse 101 96 105 Resp 18 18 B/P (MAP) 186/103 (130) 190/113 (138) 190/113 Pulse Ox 96 98 O2 Delivery Room Air Room Air Room Air 06/13/19 06/13/19 06/13/19 06/13/19 15:32 18:34 19:00 20:00 Temp 98.7 98.7 Pulse 95 105 85 Resp 18 B/P (MAP) 190/113 190/113 135/86 (102) Pulse Ox 97 O2 Delivery Room Air Room Air 06/13/19 06/14/19 06/14/19 06/14/19 23:39 03:10 07:00 10:14 Temp 98.7 99.0 98.3 98.7 99.0 98.3 Pulse 82 72 70 68 Resp 16 16 20 B/P (MAP) 118/63 (81) 122/79 (93) 115/69 (84) 126/69 Pulse Ox 96 94 96 O2 Delivery Room Air Room Air Room Air Intake and Output 06/13/19 06/13/19 06/14/19 15:00 23:00 07:00 Intake Total 1104.5 ml 480 ml Output Total 300 ml Balance 1104.5 ml -300 ml 480 ml LAKSHMI HILLIARD MD Jun 14, 2019 11:35
[2019-06-14] MEDS ORDERED: INSULIN LISPRO 300 UNITS/3 ML VIAL. SQ SCH (12:00)
--- NOTE | 2019-06-14 12:31 | NUR ---
SS following for discharge planning. SS reviewed pt chart. Pt is from home and is currently on room air. No discharge needs noted at this time. SS will continue to follow for discharge planning.
[2019-06-14] MEDS ORDERED: fentaNYL PF VIAL 100 MCG/2 ML VIAL ONE (13:18)
[2019-06-14] MEDS ORDERED: MIDAZOLAM HCL/PF 2 MG/2 ML VIAL. ONE (13:19)
[2019-06-14] MEDS ORDERED: HEPARIN for IV BOLUS 10,000 UNIT/10 ML VIAL. ONE (13:19)
[2019-06-14] MEDS ORDERED: VERAPAMIL 5 MG/2 ML VIAL. ONE (13:19)
[2019-06-14] MEDS ORDERED: NITROGLYCERIN 200 MCG/2 ML SYRINGE FOR CATH/VASC LAB. ONE ×2 (13:20→14:00)
[2019-06-14] MEDS ORDERED: BIVALIRUDIN 250 MG VIAL. IV ONE ×2 (13:51→15:15)
[2019-06-14] MEDS ORDERED: TIROFIBAN 12.5MG -0.9% NS 250 ML IV ONE (14:29)
--- NOTE | 2019-06-14 14:33 | CARD ---
MR#: [id number] Date of Study: 06/14/2019 Ordering Physician: ETTA PARSONS, Referring Physician: ETTA PARSONS, Tech: APPROVED REPORT EXAM: Two-dimensional and M-mode echocardiogram with Doppler and color Doppler. INDICATION Cardiac Disease: CAD Chest Pain Non STEMI RISK FACTORS Hypertension 2D DIMENSIONS Left Atrium(2D)3.9 (1.6-4.0cm)IVSd1.5 (0.7-1.1cm) Aortic Root(2D)3.6 (2.0-3.7cm)LVDd5.4 (3.9-5.9cm) LVOT Diameter2.4 (1.8-2.4cm)PWd0.8 (0.7-1.1cm) LVDs3.5 (2.5-4.0cm)FS (%) 35.2 % SV90.3 ml Aortic Valve AoV Peak Eleuterio.99.2cm/sAoV VTI18.9cm AO Peak GR.3.9mmHgLVOT VTI 14.31cm AO Mean GR.3mmHg Mitral Valve MV E Xqbhptzx31.3cm/sMV DECEL [id number] MV A Qeeqefsm28.9cm/sE/A Ratio1.2 TDI Lateral E' P. V6.76cm/sMedial E' P. V6.05cm/s E/Lateral E'9.4E/Medial E'10.5 Tricuspid Valve TR P. [id number]/sRAP [id number] TR Peak Gr.85fvHdLDBU85aqPe Pulmonary Vein S1 Euyhzgyx20.2cm/sS2 Ukoivwzq07.23cm/s D2 Pddnqibu95.2cm/sPVa orukxhpv770scmb LEFT VENTRICLE The left ventricle is normal size. There is mild to moderate concentric left ventricular hypertrophy. The left ventricular systolic function is normal and the ejection fraction is within normal range. T he Ejection Fraction is 50-55%. There is normal LV segmental wall motion. Transmitral Doppler flow pa ttern is Grade II-pseudonormal filling dynamics. RIGHT VENTRICLE The right ventricle is mildly dilated. There is normal right ventricular wall thickness. The right ve ntricular systolic function is normal. ATRIA The left atrium size is normal. The right atrium size is normal. The interatrial septum is intact wit h no evidence for an atrial septal defect or patent foramen ovale as noted on 2-D or Doppler imaging. AORTIC VALVE The aortic valve is normal in structure and function. Doppler and Color Flow revealed no significant aortic regurgitation. There is no significant aortic valvular stenosis. MITRAL VALVE The mitral valve is normal in structure and function. There is no evidence of mitral valve prolapse. There is no mitral valve stenosis. Doppler and Color-flow revealed trace mitral regurgitation. TRICUSPID VALVE The tricuspid valve is normal in structure and function. Doppler and Color Flow revealed trace tricus pid regurgitation with an estimated PAP of 36 mmHg. There is no tricuspid valve stenosis. PULMONIC VALVE The pulmonic valve is not well visualized. Doppler and Color Flow revealed no pulmonic valvular regur gitation. GREAT VESSELS The aortic root is normal in size. The IVC is dilated and collapses <50% with inspiration. PERICARDIAL EFFUSION There is no evidence of significant pericardial effusion. Critical Notification Critical Value: No <Conclusion> The left ventricle is normal size. The left ventricular systolic function is normal and the ejection fraction is within normal range. The Ejection Fraction is 50-55%. There is mild to moderate concentric left ventricular hypertrophy. There is no significant aortic valvular stenosis. Doppler and Color Flow revealed no significant aortic regurgitation. Doppler and Color-flow revealed trace mitral regurgitation. Doppler and Color Flow revealed trace tricuspid regurgitation with an estimated PAP of 36 mmHg. Signed by : Tyshawn Natarajan MD Electronically Approved : 06/14/2019 14:33:22
[2019-06-14] MEDS ORDERED: PRASUGREL 10 MG TABLET. ONE (14:34)
[2019-06-14] MEDS ORDERED: IV 1/2 NORMAL SALINE 1,000 ML IV SCH (14:44)
--- NOTE | 2019-06-14 14:44 | PDOC ---
MODERATE SEDATION ASSESSMENT RISKS/ALTERNATIVES Risks/Alternatives Risks and alternatives of this type of sedation and procedure discussed with: RISK/ALTERNATIVES: Patient H & P ON CHART H & P H & P on chart and reviewed for co-morbid conditions and appropriate labs. H&P ON CHART: Yes STATUS PREG STATUS ASSESSED: N/A MEDS/ALLERGIES REVIEWED Meds/Allergies Reviewed Medications and Allergies including time and route of recently administered narcotics and sedatives. MEDS/ALLERGIES REVIEWED: Yes ASA RATING ASA RATING: III AIRWAY ASSESSMENT Airway Assessment Airway patency, oral function limitations, presence of caps, crowns, dentures, partials, and ability to extend neck assessed. AIRWAY ASSESSMENT: Yes MALLAMPATI SCORE MALLAMPATI SCORE: II PRE-SEDATION ASSESSMENT PRE-SEDATION ASSESSMENT: Yes CLIFF SHIN MD Jun 14, 2019 14:44
[2019-06-14] MEDS ORDERED: 0.9 % SODIUM CHLORIDE 10 ML DISP.SYRIN. IV PRN (14:45)
[2019-06-14] MEDS ORDERED: NITROGLYCERIN SUBLINGUAL 0.4 MG BOTTLE OF 25. SL PRN (14:45)
[2019-06-14] MEDS ORDERED: ACETAMINOPHEN 325 MG TABLET. PO PRN (14:45)
--- NOTE | 2019-06-14 14:57 | CARD ---
MR#: [id number] Date of Study: 06/14/2019 Ordering Physician: CLIFF SHIN, Referring Physician: CLIFF SHIN Tech: PILO COLLIER RTR APPROVED REPORT Technologist: PILO COLLIER RTR Nurse: OMAR BONILLA RN Procedure(s) performed: Fluoro time: 18.5min Dose:[id number] 1. Left heart catheterization, selective coronary angiography via right transradial approach 2. Successful PCI/drug eluting stents placement to the right coronary artery and left anterior desce nding artery Contrast:191cc Moderate sedation: 65MIN INDICATION The indication(s) include : non-STEMI . CSHA Clinical Frailty Scale CSHA Clinical Frailty Scale: Very Fit Heart Failure Heart Failure: No PROCEDURE NARRATIVE After explaining the risks, benefits and alternative options, informed consent was obtained from rai ent. Patient was brought to the cardiac Warping Machine Operator and right wrist was prepped and draped in the usual fashion after confirming a positive modified Sebastian's test. Arterial access was obtained in the righ t radial artery and a 6 Hungarian sheath was inserted. 6 Hungarian Judah catheter was used to perform kei ective angiography of the left and right coronary arteries. LVEDP and transaortic gradients remeasure d. Left ventriculography was not performed due to contrast load used for intervention. The following findings were noted. FINDINGS 1. Hemodynamics: Left ventricular end-diastolic pressure of 29 mmHg. No pullback gradient across th e aortic valve. 2. Coronary angiography: a. The left main coronary artery arose from the left sinus of Valsalva, gave rise to the left anteri or descending and left circumflex arteries and did not show any significant stenosis. b. The left anterior descending artery showed 90% in-stent restenosis in the proximal to midsegment and 30% in-stent restenosis in the mid to distal segment. c. The left circumflex artery was a large caliber vessel that did not show any significant stenosis. d. The right coronary artery was a dominant vessel arising from the right sinus of Valsalva that nancy wed 95% stenosis involving the proximal to midsegment. The very distal segments of the posterior desc ending and posterolateral branches were occluded probably from thrombus. These are small caliber vess els. INTERVENTION The right coronary artery was engaged with a 6 Hungarian JR4 guide catheter and the stenosis in the prox imal to midsegment was crossed with a 0.014 inch Asahi Pro water guidewire. This was predilated with a 3.0 x 15 mm trek balloon following which this was successfully treated with a 3.25 x 33 mm Xience A lpine drug-eluting stent. Follow-up angiography showed resolution of the stenosis to 0% with SKYLAR 2-3 distal flow. Subsequently, the left main coronary artery was engaged with 6 Hungarian XB 3.5 guide cath eter and the in-stent restenosis in the proximal to midsegment of the left anterior descending artery was crossed with the same Asahi Pro water guidewire. This was predilated with the 3.5 x 12 mm trek b alloon following which this was successfully treated with a 3.5 x 18 mm Xience Amaris drug-eluting st ent. Follow-up angiography showed resolution of the stenosis to 0% with SKYLAR-3 distal flow. Patient t olerated the procedure well. Hemostasis was achieved using TR band. There were no immediate complicat ions. SKYLAR Flow SKYLAR Flow (Pre-Intervention): SKYLAR-2 SKYLAR Flow (Post-Intervention): SKYLAR-3 Conclusion 1. Severe two-vessel coronary artery disease involving the right coronary and left anterior descendi ng arteries as described above 2. Acute on chronic diastolic heart failure as evidenced by elevated left ventricular end-diastolic pressure 3. Successful PCI/drug eluting stents placement to the right coronary artery and also the left anter ior descending artery Recommendations 1. Aspirin 325 mg daily 2. Effient 10 mg daily for preferably one year 3. Aggrastat infusion for 12 hours secondary to thrombotic occlusion of the very distal segments of small caliber PDA/PLB 4. Cardiovascular risk factor modification Signed by : Cliff Shin, Electronically Approved : 06/14/2019 14:57:39
[2019-06-14] MEDS: TIROFIBAN 12.5MG -0.9% NS 250 ML IV PRN (15:00)
[2019-06-14] MEDS ORDERED: fentaNYL PF VIAL 100 MCG/2 ML VIAL IV ONE (15:15)
[2019-06-14] MEDS ORDERED: IODIXANOL 320 MG/ML 100 ML VIAL. IART ONE (15:15)
[2019-06-14] MEDS ORDERED: VERAPAMIL 5 MG/2 ML VIAL. IART ONE (15:15)
[2019-06-14] MEDS ORDERED: HEPARIN for IV BOLUS 10,000 UNIT/10 ML VIAL. IART ONE (15:15)
[2019-06-14] MEDS ORDERED: MIDAZOLAM HCL/PF 2 MG/2 ML VIAL. IV ONE (15:15)
[2019-06-14] MEDS ORDERED: NITROGLYCERIN 200 MCG/2 ML SYRINGE FOR CATH/VASC LAB. IART ONE (15:15)
[2019-06-14] MEDS ORDERED: PRASUGREL 10 MG TABLET. PO ONE (15:15)
[2019-06-14] MEDS ORDERED: LIDOCAINE 1% Multi-Dose 20 ML VIAL. INJ ONE (15:15)
[2019-06-14] MEDS ORDERED: CONTRAST GIVEN. MC PRN (15:30)
[2019-06-14] MEDS: ATORVASTATIN CALCIUM 40 MG TABLET. PO SCH (22:01)
[2019-06-14] MEDS: INSULIN GLARGINE 300 UNITS/3 ML INSULN.PEN. SQ SCH (22:04)
[2019-06-15] MEDS: TIROFIBAN 12.5MG -0.9% NS 250 ML IV PRN (00:09)
[2019-06-15 03:45] VITALS: BP 145/87
[2019-06-15 07:00] VITALS: BP 150/94
[2019-06-15] MEDS ORDERED: PRASUGREL 10 MG TABLET. PO SCH (08:00)
[2019-06-15] MEDS ORDERED: ASPIRIN ENTERIC COATED 325 MG TABLET.DR. PO SCH (08:00)
[2019-06-15] MEDS ORDERED: ANTI-COAG MONITOR BY PHARMACY. MC PRN (08:00)
[2019-06-15] MEDS: INSULIN LISPRO 300 UNITS/3 ML VIAL. SQ SCH ×2 (08:00)
[2019-06-15] MEDS: LOSARTAN POTASSIUM 50 MG TABLET. PO SCH (08:52)
[2019-06-15 08:53] VITALS: BP 150/94
[2019-06-15] MEDS: CARVEDILOL 12.5 MG TABLET. PO SCH (08:53)
[2019-06-15] MEDS: amLODIPine BESYLATE 10 MG TABLET PO SCH (08:53)
[2019-06-15] MEDS ORDERED: CARV12.511 PO (09:29)
[2019-06-15] MEDS ORDERED: PRAS10TA9 PO (09:29)
[2019-06-15] MEDS ORDERED: ASPI325T11 PO (09:29)
--- NOTE | 2019-06-15 10:05 | PDOC3 ---
Discharge Summary Visit Information Date of Admission: Jun 13, 2019 Date of Discharge: Jun 15, 2019 Admitting Diagnosis Comment: 1. Chest pain with mixed features. POss NSTEMI - was on ASA at home only 2. Accelerated HTN: 3. DM-2: jardiance 4. HLP: statins 5. Obesity 6. Hypokalemia Final Diagnosis Problems Medical Problems: (1) CAD (coronary artery disease) Status: Acute (2) Chest pain Status: Acute (3) Hyperglycemia Status: Acute Brief Hospital Course Allergies Allergies Coded Allergies Type Severity Reaction Last Updated Verified No Known Drug Allergies 06/13/19 No Vital Signs Vital Signs Date Time Temp Pulse Resp B/P (MAP) Pulse Ox O2 Delivery O2 Flow Rate FiO2 06/15/19 08:53 74 150/94 06/15/19 03:45 97.5 17 96 Room Air 97.5 06/14/19 23:56 2.0 Lab Results Laboratory Tests Test 06/13/19 11:11 06/13/19 12:27 06/13/19 13:35 06/13/19 15:00 Bedside Troponin I 0.23 ng/ml (<0.08) Glucose (Fingerstick) 344 mg/dL (70-99) Troponin I Quantitative 9.492 ng/mL (0.000-0.055) Urine Collection Type Unknown Urine Color Yellow Urine Clarity Clear Urine pH 6.0 Urine Specific Byron >=1.030 Urine Protein Negative mg/dL (NEG-TRACE) Urine Glucose (UA) >=1000 mg/dL (NEG) Urine Ketones (Stick) 15 mg/dL (NEG) Urine Blood Negative (NEG) Urine Nitrite Negative (NEG) Urine Bilirubin Negative (NEG) Urine Urobilinogen Dipstick 0.2 mg/dL (0.2 mg/dL) Urine Leukocyte Esterase Negative (NEG) Urine RBC 0 /HPF (0-2) Urine WBC 0 /HPF (0-4) Urine Squamous Epithelial Cells Occ /LPF Urine Bacteria 0 /HPF (0-FEW) Test 06/13/19 16:20 06/13/19 17:13 06/13/19 20:07 06/13/19 22:30 Troponin I Quantitative 29.259 ng/mL (0.000-0.055) Glucose (Fingerstick) 328 mg/dL (70-99) 240 mg/dL (70-99) Heparin Anti-Xa Act, Unfractionated < 0.10 IU/mL (0.30-0.70) Test 06/14/19 05:00 06/14/19 07:50 06/14/19 10:50 06/14/19 12:10 White Blood Count 7.8 x10^3/uL (4.0-11.0) Red Blood Count 4.59 x10^6/uL (4.30-5.70) Hemoglobin 14.1 g/dL (13.0-17.5) Hematocrit 40.5 % (39.0-53.0) Mean Corpuscular Volume 88 fL (79-100) Mean Corpuscular Hemoglobin 31 pg (25-35) Mean Corpuscular Hemoglobin Concent 35 g/dL (31-37) Red Cell Distribution Width 13.9 % (11.5-14.5) Platelet Count 175 x10^3/uL (140-400) Neutrophils (%) (Auto) 76 % (31-73) Lymphocytes (%) (Auto) 16 % (24-48) Monocytes (%) (Auto) 7 % (0-9) Eosinophils (%) (Auto) 1 % (0-3) Basophils (%) (Auto) 0 % (0-3) Neutrophils # (Auto) 5.9 x10^3/uL (1.8-7.7) Lymphocytes # (Auto) 1.2 x10^3/uL (1.0-4.8) Monocytes # (Auto) 0.5 x10^3/uL (0.0-1.1) Eosinophils # (Auto) 0.1 x10^3/uL (0.0-0.7) Basophils # (Auto) 0.0 x10^3/uL (0.0-0.2) Heparin Anti-Xa Act, Unfractionated 0.19 IU/mL (0.30-0.70) 0.37 IU/mL (0.30-0.70) Sodium Level 143 mmol/L (136-145) Potassium Level 3.1 mmol/L (3.5-5.1) Chloride Level 106 mmol/L (98-107) Carbon Dioxide Level 26 mmol/L (21-32) Anion Gap 11 (6-14) Blood Urea Nitrogen 16 mg/dL (8-26) Creatinine 1.1 mg/dL (0.7-1.3) Estimated GFR (Cockcroft-Gault) 69.8 Glucose Level 175 mg/dL (70-99) Calcium Level 8.4 mg/dL (8.5-10.1) Magnesium Level 1.9 mg/dL (1.8-2.4) Triglycerides Level 189 mg/dL (0-150) Cholesterol Level 165 mg/dL (0-200) LDL Cholesterol, Calculated 95 mg/dL (0-100) VLDL Cholesterol, Calculated 38 mg/dL (0-40) Non-HDL Cholesterol Calculated 133 mg/dL (0-129) HDL Cholesterol 32 mg/dL (40-60) Cholesterol/HDL Ratio 5.2 Glucose (Fingerstick) 172 mg/dL (70-99) 173 mg/dL (70-99) Test 06/14/19 16:41 06/14/19 21:30 06/15/19 08:31 Glucose (Fingerstick) 113 mg/dL (70-99) 148 mg/dL (70-99) 85 mg/dL (70-99) Laboratory Tests Test 06/14/19 10:50 06/14/19 12:10 06/14/19 16:41 06/14/19 21:30 Heparin Anti-Xa Act, Unfractionated 0.37 IU/mL (0.30-0.70) Glucose (Fingerstick) 173 mg/dL (70-99) 113 mg/dL (70-99) 148 mg/dL (70-99) Test 06/15/19 08:31 Glucose (Fingerstick) 85 mg/dL (70-99) Brief Hospital Course Mr. Salazar is a 54 old obese male with 8 indwelling stents? 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 Information Condition at Discharge: Improved, Stable Follow Up: Weeks (cards as instructed) Disposition/Orders: D/C to Home Scheduled Amlodipine Besylate (Amlodipine Besylate) 10 Mg Tablet, 10 MG PO DAILY for HTN, (Reported) Entered as Reported by: PATRICE MATHIAS on 06/13/191754 Last Taken: Unknown Dose on Unknown Date & Time Last Action: Continued on 06/13/191758 by PATRICE MATHIAS Aspirin (Aspirin Ec) 325 Mg Tablet.dr, 325 MG PO DAILYWBKFT for cad, #120 Prescribed by: LAKSHMI HILLIARD on 06/15/19928 Atorvastatin Calcium (Atorvastatin Calcium) 40 Mg Tablet, 1 TAB PO DAILY for high cholestrol , #30 Ref 5 (Reported) Entered as Reported by: PATRICE MATHIAS on 06/13/191754 Last Taken: Unknown Dose on Unknown Date & Time Last Action: Continued on 06/13/191758 by PATRICE MATHIAS Carvedilol (Carvedilol ) 12.5 Mg Tablet, 50 MG PO BIDWMEALS for cad, #60 Ref 2 Prescribed by: LAKSHMI HILLIARD on 06/15/19928 Insulin Aspart (Novolog) 100 Unit/1 Ml Cartridge, 38 UNIT SQ DAILYWBKFT for diabetes, (Reported) Entered as Reported by: PATRICE MATHIAS on 06/13/191754 Last Taken: Unknown Dose on Unknown Date & Time Last Action: Converted on 06/13/191758 by PATRICE MATHIAS Insulin Aspart (Novolog) 100 Unit/1 Ml Cartridge, 36 UNIT SQ DAILYWLUN for diabetes, (Reported) Entered as Reported by: PATRICE MATHIAS on 06/13/191754 Last Taken: Unknown Dose on Unknown Date & Time Last Action: Converted on 06/13/191758 by PATRICE MATHIAS Insulin Aspart (Novolog) 100 Unit/1 Ml Cartridge, 42 UNIT SQ DAILYWSUP for diabetes, (Reported) Entered as Reported by: PATRICE MATHIAS on 06/13/191754 Last Taken: Unknown Dose on Unknown Date & Time Last Action: Converted on 06/13/191758 by PATRICE MATHIAS Insulin Glargine,Hum.rec.anlog (Lantus Solostar) 100 Unit/1 Ml Insuln.pen, 108 UNIT SQ QHS for diabetes, #15 Ref 3 (Reported) Entered as Reported by: PATRICE MATHIAS on 06/13/191754 Last Taken: Unknown Dose on Unknown Date & Time Last Action: Continued on 06/13/191758 by PATRICE MATHIAS Losartan Potassium (Losartan Potassium) 100 Mg Tablet, 100 MG PO DAILY for HYPERTENSION, (Reported) Entered as Reported by: PATRICE MATHIAS on 06/13/191754 Last Taken: Unknown Dose on Unknown Date & Time Last Action: Converted on 06/13/191758 by PATRICE MATHIAS Metformin HCl (Metformin HCl) 500 Mg/5 Ml Solution, 1,000 MG PO BID for d iabetes, (Reported) Entered as Reported by: PATRICE MATHIAS on 06/13/191754 Last Taken: Unknown Dose on Unknown Date & Time Last Action: Reviewed on 06/13/191755 by PATRICE MATHIAS Prasugrel Hcl (Effient) 10 Mg Tablet, 10 MG PO DAILYWBKFT for cad, #90 Prescribed by: LAKSHMI HILLIARD on 06/15/19 0929 Discontinued Medications Aspirin (Aspirin) 81 Mg Tab.chew, 1 TAB PO DAILY for heart health , #30 Ref 3 (Reported) Entered as Reported by: PATRICE MATHIAS on 06/13/191754 Last Taken: Unknown Dose on Unknown Date & Time Last Action: Continued on 06/13/191758 by PATRICE MATHIAS Carvedilol (Carvedilol) 25 Mg Tablet, 50 MG PO BIDWMEALS for CARDIAC, (Reported) Entered as Reported by: PATRICE MATHIAS on 06/13/191754 Last Taken: Unknown Dose on Unknown Date & Time Last Action: Converted on 06/13/191758 by LAKSHMI AGUILAR MD Jun 15, 2019 10:05
--- NOTE | 2019-06-15 12:44 | NUR ---
Discharge Note: [facility] [place] Discharge instructions and discharge home medications reviewed with Patient and a copy given. All questions have been answered and understanding verbalized. The following instructions and handouts were given: post cardiac cath instructions, coreg, effient, ASA.
== END 2019-06-15 12:15 | disposition home or self-care (01) | DRG 246 ==
LOC: ER 09:20 → 2 NORTH 10:30
PROVIDERS: ADMIT Internal Medicine; ATTEND Internal Medicine
PROC: 027135Z Dilation of Coronary Artery, Two Arteries with Two Drug-eluting Intraluminal Devices, Percutaneous Approach (ICD-10-PCS; principal; 2019-06-14)
PROC: 4A023N7 Measurement of Cardiac Sampling and Pressure, Left Heart, Percutaneous Approach (ICD-10-PCS; 2019-06-14)
PROC: B2111ZZ Fluoroscopy of Multiple Coronary Arteries using Low Osmolar Contrast (ICD-10-PCS; 2019-06-14)
DX: T82.855A Stenosis of coronary artery stent, initial encounter (principal); I21.4 Non-ST elevation (NSTEMI) myocardial infarction; I50.33 Acute on chronic diastolic (congestive) heart failure; I25.10 Atherosclerotic heart disease of native coronary artery without angina pectoris; I11.0 Hypertensive heart disease with heart failure; E11.65 Type 2 diabetes mellitus with hyperglycemia; E78.5 Hyperlipidemia, unspecified; E66.9 Obesity, unspecified; E87.6 Hypokalemia; Y83.8 Other surgical procedures as the cause of abnormal reaction of the patient, or of later complication, without mention of misadventure at the time of the procedure; Y92.89 Other specified places as the place of occurrence of the external cause; Z87.891 Personal history of nicotine dependence; Z82.49 Family history of ischemic heart disease and other diseases of the circulatory system; Z68.33 Body mass index [BMI] 33.0-33.9, adult; Z95.5 Presence of coronary angioplasty implant and graft
CPT/HCPCS: 36415; 71045; 80048; 80053; 80061; 81001; 82962; 83036; 83735; 83880; 84443; 84484; 85025; 85520; 85610; 92928; 93005; 93306; 93458; 96365; 96375; 99152; 99153; C1725; C1769; C1874; C1887; C1892; J0583; J1644; J1815; J2250; J3010; J3475; J3490; J7030; Q9967; 99291-25; C1713; G0378; J3246